=== PATIENT | male | born 1960 | race Caucasian/White ===

== ENCOUNTER 2020-02-20 09:50 | Inpatient (IN) ==
--- NOTE | 2020-02-04 16:02 | PAT Medication Instructions ---
Medication Instructions Date of Service February 04, 2020 Home Medications Testosterone Inj 1 dose INJ Q12D duloxetine 30 - 60 mg PO BID ferrous sulfate [Iron (ferrous sulfate)] 325 mg PO QAM levothyroxine 50 mcg PO HS losartan 50 mg PO HS multivitamin 1 tab PO QAM quetiapine 300 mg PO HS Continue as directed Testosterone Inj 1 dose INJ Q12D DO NOT take the morning of surgery ferrous sulfate [Iron (ferrous sulfate)] 325 mg PO QAM multivitamin 1 tab PO QAM Take morning of surgery With a small sip of water, OTHERWISE NOTHING TO EAT OR DRINK AFTER MIDNIGHT: duloxetine 30 - 60 mg PO BID Take evening before surgery duloxetine 30 - 60 mg PO BID levothyroxine 50 mcg PO HS losartan 50 mg PO HS quetiapine 300 mg PO HS Other Notes If you have any questions please call us at [phone] or [phone] or [phone] or [phone]
--- NOTE | 2020-02-05 13:02 | Anesthesiology Consultation ---
Date of Service February 05, 2020 Assessment & Plan (1) Encounter for pre-operative examination: COVID Status: As of 02/04 assessment, patient denies travel to endemic area, known exposure/sick contacts, or symptoms of COVID19. Patient instructed that they and their household members must follow strict social distancing guidelines, wear a mask in public and avoid travel for 14 days prior to surgery. Preoperative COVID19 testing to be completed prior to surgery per surgeon's a rrangements. Patient made aware to self-isolate as much as possible between COVID testing and surgery. Patient having dental procedure for broken tooth prior to surgery. Surgeon's office made aware. Chart Review Chart Review: Acceptable Risk for Surgery and Patient seen in Pre Admission Testing Teaching & Discussion Instructed NPO after midnight before surgery, except medications with 15 cc of water. Medication instructions provided according to the PAT guidelines. History Surgery Operation Date: 02/20/20 11:25 Proposed Procedures p L4-S1 Decompression Fusion, Spinal Cord Monitoring - Ricci oBwen, Height/Weight Height: 5 ft 11 in Weight: 81.8 kg Allergies Allergy/AdvReac Type Severity Reaction Status Date / Time phenobarbital Allergy Unknown Hives Verified 01/31/20 15:09 Medications Home Medications Medication Instructions Recorded Confirmed Last Taken Testosterone Inj 1 dose INJ Q12D 01/31/20 01/31/20 Unknown duloxetine 30 - 60 mg PO BID 01/31/20 01/31/20 Unknown ferrous sulfate [Iron (ferrous 325 mg PO QAM 01/31/20 01/31/20 Unknown sulfate)] levothyroxine 50 mcg PO HS 01/31/20 01/31/20 Unknown losartan 50 mg PO HS 01/31/20 01/31/20 Unknown multivitamin 1 tab PO QAM 01/31/20 01/31/20 Unknown quetiapine 300 mg PO HS 01/31/20 01/31/20 Unknown Past Medical History Medical History Chronic back pain TO LEFT GROIN Depression Hypertension Hypothyroidism Post traumatic stress disorder Uses medical cannabis HS, has found it to be very effective. Exercise / Class Metabolic Activity II 4-5 Yardwork/Stairs/Walk up hill Past Family History Family History (Updated 01/31/20 @ 15:20 by Lindsay Harrell RN) Mother Family hx of colon cancer Father Family history of diabetes mellitus Past Surgical History Surgical History (Updated 02/05/20 @ 12:58 by Sohan Ayala) Anal fissure REPAIR History of colonoscopy MULTIPLE History of esophagogastroduodenoscopy (EGD) History of tonsillectomy Undescended testicle, unilateral A CHILD REPAIR Past Anesthesia History No Hx of Anesthesia Complications and No Family Hx of Anesthesia Complications History of PONV No Hx of PONV and No Hx of Motion Sickness Social History Smoking Status: Current every day smoker Smoking cigarettes per day: 20 CIGS A DAY X 25 YRS Do You Dip or Chew Tobacco: No Hx Alcohol Use: Yes Alcohol type: hard liquor alcohol intake frequency: a few times a month Hx Substance Use: Yes substance use type: marijuana Substance Use Type Other:: MEDICAL MARIJUANA CARD-1 X A DAY HS EDIBLE Review of Systems Pt denies any recent chest pain, shortness of breath, palpitations, cough, fever, URI, or uncontrolled acid reflux (just gets occasionally). Physical Exam Vital Signs BP: 142/95 (pt appears somewhat nervous, reports white coat HTN) P: 86bpm SPO2: 97% RA T: 98.4 F R: 12 ENMT Mouth: + dental restorations (2 crowns on molars) and + chipped teeth (broken lower R molar to be repaired prior to surgery); no loose teeth Thyromental Distance: > or= 3.5 Finger Breadths Mallampati Class: II Neck normal visual inspection; neck extension not limited Respiratory normal respiratory effort Auscultation: lungs clear to auscultation bilaterally Cardiovascular Rate/Rhythm: regular rate and regular rhythm Heart Sounds: no murmur Extremities: no edema Testing Laboratory Results 02/05/20 13:12 02/05/20 13:12 PT 10.2 Seconds (9.0-12.0) 02/05/20 13:12 INR 1.0 (0.9-1.1) 02/05/20 13:12 APTT 28.2 Seconds (21.0-31.0) 02/05/20 13:12 Urine Color Dark Yellow 02/05/20 13:12 Urine Appearance Clear (Clear) 02/05/20 13:12 Urine pH 5.5 (4.5-7.5) 02/05/20 13:12 Ur Specific [place] 1.017 (1.000-1.030) 02/05/20 13:12 Urine Protein Negative (Negative) 02/05/20 13:12 Urine Glucose (UA) Negative (Negative) 02/05/20 13:12 Urine Ketones Negative (Negative) 02/05/20 13:12 Urine Nitrite Negative (Negative) 02/05/20 13:12 Ur Leukocyte Esterase Negative (Negative) 02/05/20 13:12 Blood Type O Positive 02/05/20 13:12 Antibody Screen NEGATIVE 02/05/20 13:12 Electrocardiogram Date: 02/05/20 Findings: + RBBB Chest X-Ray Date: 02/05/20 Findings: + NAD
--- NOTE | 2020-02-05 13:45 | XRay Report ---
TWO VIEW CHEST CLINICAL HISTORY: Preoperative examination. FINDINGS: PA and lateral chest radiographs are obtained. No prior studies are available for compariso n at the time of dictation. The cardiomediastinal silhouette is unremarkable noting atherosclerotic calcification of the thoracic aorta. Scarring/atelectasis is noted in the left lower lobe. No airspac e consolidation or pleural effusion is identified. There is no pneumothorax. There are healed right-s ided rib fractures. IMPRESSION: No active disease in the chest. ACT 112: Negative or not required by law. Electronically signed by: Jose Darby M.D. 02/05/2020 1:44 PM
[2020-02-05 14:40] LABS: Basophils # (auto) 0.01 K/uL (0-0.2); Basophils % (auto) 0.2 %; Eosinophils # (auto) 0.01 K/uL (0-0.5); Eosinophils % (auto) 0.2 %; Hematocrit (blood only) 42.4 % (42-52); Hemoglobin 14.4 g/dL (14.0-18.0); Immature Granulocytes # (auto) 0.01 K/uL (0.00-0.02); Immature Granulocytes % (auto) 0.2 %; Lymphocytes # (auto) 1.72 K/uL (1.2-3.4); Lymphocytes % (auto) 29.4 %; Mean Corpuscular Hemoglobin 33.7 pg (25-34); Mean Corpuscular Volume 99.3 fL (80-100); Mean Platelet Volume 9.6 fL (7.4-10.4); Monocytes % (auto) 10.2 %; Neutrophils # (auto) 3.51 K/uL (1.4-6.5); Neutrophils % (auto) 59.8 %; Platelet Count 183 K/uL (130-400); RDW Coefficient of Variation 13.6 % (11.5-14.5); RDW Standard Deviation 48.8 fL (36.4-46.3); Red Blood Count 4.27 M/uL (4.7-6.1); White Blood Count 5.86 K/uL (4.8-10.8)
[2020-02-05 14:43] LABS: Appearance Urine Clear (Clear); Bilirubin Urine Negative (Negative); Blood Urine Negative (Negative); Color Urine Dark Yellow; Glucose Urine UA Negative (Negative); Ketones Urine Negative (Negative); Leukocyte Esterase Urine Negative (Negative); Nitrite Urine Negative (Negative); Protein Urine Negative (Negative); Specific Gravity Urine 1.017 (1.000-1.030); Urobilinogen Urine Negative (Negative); pH Urine 5.5 (4.5-7.5)
[2020-02-05 14:52] LABS: Partial Thromboplastin Time 28.2 Seconds (21.0-31.0); Prothrombin Time 10.2 Seconds (9.0-12.0)
[2020-02-05 15:43] LABS: BUN Creatinine Ratio 16.7 (10-20); Calcium 9.8 mg/dl (8.5-10.1); Creatinine Clr Calc Pharmacy 83.7 ml/min; Est GFR (African American) 94.4; Est GFR (Non-African American) 81.4; Potassium 4.3 mmol/L (3.5-5.1)
--- NOTE | 2020-02-06 06:06 | Electrocardiogram Report ---
Test Reason : Blood Pressure : / mmHG Vent. Rate : 083 BPM Atrial Rate : 083 BPM P-R Int : 142 ms QRS Dur : 144 ms QT Int : 386 ms P-R-T Axes : 068 073 054 degrees QTc Int : 453 ms Normal sinus rhythm Right bundle branch block Abnormal ECG No previous ECGs available Confirmed by Robe Yanes ([id number]) on 02/06/2020 6:06:16 AM Referred By: Ricci Bowen Confirmed By:Robe Yanes
[~2020-02-20 09:50] MED LIST: ACETAMINOPHEN 500 MG TAB PO SCH; CeleBREX 200 MG CAP PO SCH; GABAPENTIN 600 MG DOSE PO SCH; LR 15ML/HR IV SCH; ceFAZolin 2000MG 2,000 MG/15 ML SYR IV SCH
[2020-02-20] MEDS ORDERED: LABETALOL HCL IV 5 MG/ML 20ML IV PRN (10:03)
[2020-02-20] MEDS ORDERED: ATROPINE SULFATE 0.1 MG/ML 10ML SYR IV PRN (10:03)
[2020-02-20] MEDS ORDERED: ONDANSETRON INJ 2 MG/ML 2 ML VIAL IV PRN ×2 (10:03→15:50)
[2020-02-20] MEDS ORDERED: HYDROmorphone INJ 1 MG/ML SYRINGE IV PRN (10:03)
[2020-02-20] MEDS ORDERED: ePHEDrine sulfate 50 MG/ML AMP IV PRN (10:03)
[2020-02-20] MEDS ORDERED: MEPERIDINE HCL 25 MG/ML CARP/VIAL IV PRN (10:03)
[2020-02-20] MEDS ORDERED: fentaNYL citrate 100 MCG/2 ML VIAL IV PRN (10:03)
[2020-02-20] MEDS ORDERED: PHENYLEPHRINE 100MCG/ML 5ML SYR IV PRN (10:03)
[2020-02-20] MEDS ORDERED: LIDOCAINE HCL 2% 2 ML VIAL/AMP(20MG/ML) INFIL ONE (10:51)
[2020-02-20] MEDS ORDERED: ONDANSETRON INJ 2 MG/ML 2 ML VIAL ONE (10:51)
[2020-02-20] MEDS ORDERED: PROPOFOL IV EMULSION 10 MG/ML 20 ML VIAL IV ONE (10:51)
[2020-02-20] MEDS ORDERED: ROCURONIUM BROMIDE 10 MG/ML 5 ML VIAL IV ONE ×4 (10:51→12:59)
[2020-02-20] MEDS ORDERED: MIDAZOLAM HCL 1 MG/ML 2ML VIAL ONE (10:51)
[2020-02-20] MEDS ORDERED: fentaNYL citrate 100 MCG/2 ML VIAL ONE (10:51)
--- NOTE | 2020-02-20 11:16 | History & Physical Bridge Note ---
Date of Service February 20, 2020 History & Physical Bridge Note I have examined the patient, reviewed the History & Physical and in the interval since the performance of the History & Physical I have noted the following changes of clinical significance: no changes noted
--- NOTE | 2020-02-20 11:17 | History & Physical Report ---
Date of Service February 20, 2020 Assessment & Plan (1) Neurogenic claudication due to lumbar spinal stenosis: Admission and Anticipated Discharge Date Admission Date: L4-S1 decompression fusion History of Present Illness Chief Complaint: Back and leg pain Primary Care Provider: Paxton Rojas DO This is a 5-year-old male who presents with chronic resistant leg pain after failing a course of nonoperative care is here for surgical invention. Allergies Allergy/AdvReac Type Severity Reaction Status Date / Time phenobarbital Allergy Unknown Hives Verified 02/20/20 10:18 Home Medications Home Medications Medication Instructions Recorded Confirmed Type Testosterone Inj 1 dose INJ Q12D 01/31/20 02/20/20 History duloxetine 30 - 60 mg PO BID 01/31/20 02/20/20 History ferrous sulfate [Iron (ferrous 325 mg PO QAM 01/31/20 02/20/20 History sulfate)] levothyroxine 50 mcg PO HS 01/31/20 02/20/20 History losartan 50 mg PO HS 01/31/20 02/20/20 History multivitamin 1 tab PO QAM 01/31/20 02/20/20 History quetiapine 300 mg PO HS 01/31/20 02/20/20 History Past Med/Surg History Medical History (Updated 02/20/20 @ 11:17 by Ricci Bowen DO) Chronic back pain TO LEFT GROIN Depression Hypertension Hypothyroidism Post traumatic stress disorder Uses medical cannabis HS, has found it to be very effective. Right bundle branch block Surgical History Anal fissure REPAIR History of colonoscopy MULTIPLE History of esophagogastroduodenoscopy (EGD) History of tonsillectomy Undescended testicle, unilateral A CHILD REPAIR Family History (Updated 01/31/20 @ 15:20 by Lindsay Harrell RN) Mother Family hx of colon cancer Father Family history of diabetes mellitus Social History Smoking Status: Current every day smoker Cigarettes Per Day: 20 CIGS A DAY X 25 YRS; Second Hand Exposure: Yes (PARENTS SMOKED); Do You Dip or Chew Tobacco: No; Hx Alcohol Use: Yes Alcohol type: hard liquor Hx Substance Use: Yes Substance Use Type Other:: MEDICAL MARIJUANA CARD-1 X A DAY HS EDIBLE Preferred Language: Jordanian Communication Ability: Effective Construction Project Assistant Required: No Beliefs That Will Affect Care: None Current Living Situation: Significant Other Other Information That Helps Us Care for You: No Feels Safe at Home: Yes Safety Concerns: Feels Safe At This Time Assistive Devices: Brace/Splint/Immobilizer and Glasses Assistive Devices Comment: BRACE PRN Physical Exam Physical Exam: Patient is alert and oriented Heart regular rate and rhythm Lungs clear to auscultation Results & Data ([facility]) Vital Signs (Past 12 Hours) Vital Signs Temp Pulse Resp BP Pulse Ox 02/20/20 10:21 36.5 C 90 16 159/79 H 96
[2020-02-20] MEDS ORDERED: BUPIVACAINE/EPINEPHRINE 0.25% 1:200,000 30 ML VIAL ONE (11:25)
[2020-02-20] MEDS ORDERED: BACITRACIN INJ 50,000 UNIT VIAL ONE (11:25)
[2020-02-20] MEDS ORDERED: HYDROmorphone INJ 2 MG/ML SYR/VIAL ONE (12:07)
[2020-02-20] MEDS ORDERED: FLOSEAL HEMOSTATIC MATRIX 10ML TOP ONE ×2 (12:49→13:46)
[2020-02-20] MEDS ORDERED: ePHEDrine sulfate 50 MG/ML SYR ONE (13:04)
[2020-02-20] MEDS ORDERED: PHENYLEPHRINE 100MCG/ML 5ML SYR ONE (13:04)
[2020-02-20] MEDS ORDERED: PHENYLEPHRINE HCL 10 MG/ML VIAL ONE (13:05)
[2020-02-20] MEDS ORDERED: GLYCOPYRROLATE 0.2 MG/ML VIAL ONE (13:42)
[2020-02-20] MEDS ORDERED: NEOSTIGMINE METHYLSULFATE 1 MG/ML 10ML VIAL ONE (13:42)
--- NOTE | 2020-02-20 13:56 | Operative Report ---
Post Operative Report Pre & Post Diagnosis Operation Date: 02/20/20 11:25 Pre-Op Diagnosis: Lumbar spinal stenosis with neurogenic claudication Post-Op Diagnosis: Same I identified the patient and participated in the time-out.: Yes Procedure Operation Date: 02/20/20 11:25 Actual Procedures #1 lumbar decompression with bilateral medial facetectomies and foraminotomies L3-4, L4-5 L5-S1 peer #2 posterior spinal fusion L4-5 L5-S1. #3 please posterior instrumentation L4-5 L5-S1. #4 interbody fusion L4-5 L5-S1. #5 placement peek cage 10 x 26 mm at L4-5 L5-S1. #6 placement of locally harvested morselized autograft in the posterior lateral gutters. #7 patient refused collagen sponge, master graft in the posterior lateral gutters and ostium interbody space. Surgeon Ricci Bowen, Reed Repairer Ngozi Malcolm Estimated Blood Loss 150 Findings Consistent with Post-Op Diagnosis Specimens None Indications This is a 59-year-old male who presents with dementia diagnosis after failing since course of nonoperative care is here for the above-mentioned procedure. Description of Procedure Patient was met with identified informed consent obtained. Patient was then taken to the operative suite underwent intubation placed in a prone position the Alex table on top of the Jose frame. All bony prominences well-padded eyes inspected to ensure no external pressure placed upon the bed at this point the lumbar spine was prepped and draped in normal sterile fashion. Sharp dissection with the assistance of Bovie cautery was performed down to and exposing the lamina transverse processes of L4-L5 and sacral ala bilaterally. From caudal to cephalad fashion complete laminectomy of L5 L4 and partial laminectomy of L3 was performed including bilateral medial facetectomies and foraminotomies addressing all spinal stenosis. Pedicle screws are in place in all 4 L5 and S1 levels bilaterally with assistance of fluoroscopy and the appropriately sized yfn placed. They will have a transfemoral approach on the left pleat discectomy about 5 S1 was performed and plegic her to do some cortical bleeding bone in the 11 x 26 mm peek cage filled with osteobone graft tapped in position. And proceeded L4-[address] of a transforaminal approach on the left peak discectomy performed endplates graded to subcortical mean bone and again an 11 x 26 mm peek cage filled osteobone graft after position. The rods were then locked into final position bilaterally. The transverse processes of L4-L5 sacral ala bridging subcortical body wound. Infuse collagen sponge meshed graft local autograft was placed in the posterior lateral gutters. 15 round BATSHEVA drain inserted. The incision was then closed with 1 Vicryl to fascia 2-0 Vicryl subcutaneously and 4 Monocryl for final skin closure. Steri-Strips dressings placed. Patient will continue to PACU stable condition. Please note spinal cord monitoring was allowed to have the procedure no changes noted. Lastly Ngozi Malcolm was present for the entire surgery by the patient positioning complex questions of the surgery and final skin closure. I attest to the content of the Intraoperative Record and any orders documented therein. Any exceptions are noted below.
--- NOTE | 2020-02-20 14:14 | Fluoroscopy Report ---
FL lumbar spine 2-3V CLINICAL HISTORY: L4-S1 DECOMPRESSION AND FUSION COMPARISON STUDY: None. FLUOROSCOPY TIME: 22 seconds. FINDINGS: 3 fluoroscopic spot images of the lumbar spine demonstrate posterior decompression fusion f rom L4 through S1 with pedicle screws and rods. The hardware appears intact. IMPRESSION: Fluoroscopy provided for L4-S1 posterior decompression and fusion. ACT 112: Negative or not required by law. Electronically signed by: Tayo Hernández M.D. 02/20/2020 2:13 PM
--- NOTE | 2020-02-20 15:00 | Anesthesiology Progress Note ---
Date of Service February 20, 2020 Anesthesia Post Procedure Vital Signs Vital Signs: Temp Pulse Pulse Resp BP BP Pulse Ox 02/20/20 14:50 86 13 136/77 93 02/20/20 14:40 82 12 105/78 95 02/20/20 14:30 84 10 L 131/77 98 02/20/20 14:20 80 13 113/78 95 02/20/20 14:12 36.1 C L 72 14 102/60 98 02/20/20 10:21 36.5 C 90 16 159/79 H 96 Pain Intensity Posterior Back: Pain Intensity: 4 Transfer of Care Handoff Completed per policy Notes Mental Status: alert / awake / arousable and participated in evaluation Patient Amnestic to Procedure: Yes Nausea / Vomiting: adequately controlled Pain: adequately controlled Airway Patency, RR, SpO2: stable & adequate BP & HR: stable & adequate Hydration State: stable & adequate Anesthetic Complications: no major complications apparent and Pt Satisfied with anesthetic care
[2020-02-20] MEDS ORDERED: DO NOT ADMINISTER FLU VACCINE PRN (15:50)
[2020-02-20] MEDS ORDERED: LORazepam 0.5 MG/1 ML VIAL IV PRN (15:50)
[2020-02-20] MEDS ORDERED: HYDROmorphone INJ 0.5 MG/0.5 ML SYR IV PRN (15:50)
[2020-02-20] MEDS ORDERED: DO NOT ADMINISTER PNEUMOCOCCAL VACCINE PRN (15:50)
[2020-02-20] MEDS ORDERED: SOD PHOSPHATE/SOD BIPHOSPHATE ENEMA 132 ML BTL PR PRN (15:50)
[2020-02-20] MEDS ORDERED: ALUMINUM/MAGNESIUM SUSP 30 ML UDC PO PRN (15:50)
[2020-02-20] MEDS ORDERED: MAGNESIUM HYDROXIDE SUSP 30 ML UDC PO PRN (15:50)
[2020-02-20] MEDS ORDERED: hydrOXYzine HCl 25 MG TAB PO PRN (15:50)
[2020-02-20] MEDS ORDERED: ACETAMINOPHEN 1,000 MG/100 ML VIAL IV PRN (15:50)
[2020-02-20] MEDS ORDERED: METOCLOPRAMIDE HCL INJ 5 MG/ML 2 ML VIAL IV PRN (15:50)
[2020-02-20] MEDS ORDERED: NALOXONE HCL 0.4 MG/1 ML VIAL/CARP IV PRN (15:50)
[2020-02-20] MEDS ORDERED: FAMOTIDINE 20 MG TAB PO PRN (15:50)
[2020-02-20] MEDS ORDERED: ONDANSETRON 4 MG OD TAB PO PRN (15:50)
[2020-02-20] MEDS ORDERED: bisacodyL 10 MG SUPP PR PRN (15:50)
[2020-02-20] MEDS ORDERED: diphenhydrAMINE Capsule 25 MG CAP PO PRN (15:50)
[2020-02-20] MEDS ORDERED: LORazepam 0.5 MG TAB PO PRN (15:50)
[2020-02-20] MEDS ORDERED: PROMETHAZINE HCL 12.5 MG in SODIUM CHLORIDE 0.9% 50 ML IV PRN (15:50)
[2020-02-20] MEDS: LACTATED RINGER'S 1,000 ML IV SCH ×2 (16:08→22:29)
[2020-02-20] MEDS: oxyCODONE HCL IR 5 MG TAB (IMMEDIATE RELEASE) PO PRN ×2 (17:12→21:39)
[2020-02-20] MEDS: KETOROLAC TROMETHAMINE 15 MG/ML VIAL IV SCH (18:08)
[2020-02-20] MEDS: ceFAZolin 2000MG 2,000 MG/15 ML SYR IV SCH (20:51)
[2020-02-20] MEDS: QUEtiapine FUMARATE 300 MG TABLET PO SCH (20:53)
[2020-02-20] MEDS: DOCUSATE SODIUM/SENNA 50/8.6MG TAB PO SCH (20:53)
[2020-02-20] MEDS: LOSARTAN POTASSIUM 50 MG TAB PO SCH (20:53)
[2020-02-20] MEDS: DULoxetine HCL 30 MG CAP PO SCH (20:54)
[2020-02-20] MEDS: LEVOTHYROXINE SODIUM 50 MCG TABLET PO SCH (20:54)
[2020-02-20] MEDS: ACETAMINOPHEN 500 MG TAB PO PRN (21:39)
[2020-02-20] MEDS: HYDROmorphone INJ 1 MG/ML SYRINGE IV PRN (22:25)
[2020-02-21] MEDS: KETOROLAC TROMETHAMINE 15 MG/ML VIAL IV SCH ×3 (00:08→12:02)
[2020-02-21] MEDS: oxyCODONE HCL IR 5 MG TAB (IMMEDIATE RELEASE) PO PRN ×4 (03:01→16:04)
[2020-02-21] MEDS: ceFAZolin 2000MG 2,000 MG/15 ML SYR IV SCH (03:02)
[2020-02-21] MEDS: HYDROmorphone INJ 1 MG/ML SYRINGE IV PRN ×5 (04:55→20:50)
[2020-02-21] MEDS: LACTATED RINGER'S 1,000 ML IV SCH (05:29)
[2020-02-21] MEDS: POLYETHYLENE (MIRALAX) 17 GM PACK PO SCH ×3 (05:31→17:30)
[2020-02-21 06:13] LABS: Basophils # (auto) 0.01 K/uL (0-0.2); Basophils % (auto) 0.2 %; Eosinophils # (auto) 0.01 K/uL (0-0.5); Eosinophils % (auto) 0.2 %; Hematocrit (blood only) 31.6 % (42-52); Hemoglobin 10.5 g/dL (14.0-18.0); Immature Granulocytes # (auto) 0.01 K/uL (0.00-0.02); Immature Granulocytes % (auto) 0.2 %; Lymphocytes # (auto) 1.47 K/uL (1.2-3.4); Mean Corpuscular Hgb Conc 33.2 g/dL (32-36); Mean Corpuscular Volume 102.3 fL (80-100); Mean Platelet Volume 9.4 fL (7.4-10.4); Monocytes # (auto) 0.59 K/uL (0.11-0.59); Neutrophils # (auto) 3.79 K/uL (1.4-6.5); Neutrophils % (auto) 64.4 %; Platelet Count 135 K/uL (130-400); RDW Standard Deviation 52.3 fL (36.4-46.3); Red Blood Count 3.09 M/uL (4.7-6.1); White Blood Count 5.88 K/uL (4.8-10.8)
[2020-02-21 06:38] LABS: BUN Creatinine Ratio 11.6 (10-20); Creatinine Clr Calc Pharmacy 73.7 ml/min; Est GFR (African American) 84.1; Est GFR (Non-African American) 72.6; Potassium 3.8 mmol/L (3.5-5.1)
[2020-02-21] MEDS: ACETAMINOPHEN 500 MG TAB PO PRN ×2 (08:06→16:05)
[2020-02-21] MEDS: FERROUS SULFATE 325 MG TAB PO SCH (08:06)
[2020-02-21] MEDS: DULoxetine HCL 30 MG CAP PO SCH ×2 (08:06→20:30)
[2020-02-21] MEDS: MULTIVITAMIN TAB PO SCH (08:06)
--- NOTE | 2020-02-21 12:32 | Orthopedic Progress Note ---
Date of Service February 21, 2020 Assessment & Plan (1) Neurogenic claudication due to lumbar spinal stenosis: Admission and Anticipated Discharge Date Admission Date: February 20, 2020 This time we will continue physical therapy monitor his BATSHEVA operatively discharge home in the next few days. Subjective Back pain controlled leg symptoms improved. Physical Exam Physical Exam: Patient appears comfortable is excellent strength testing. Results & Data ([facility]) Vital Signs (Past 12 Hours) Vital Signs Temp Pulse Pulse Resp BP Pulse Ox 02/21/20 11:16 36.8 C 86 18 128/82 95 02/21/20 07:45 36.8 C 90 22 115/71 94 02/21/20 02:54 37.1 C 102 H 18 107/63 90
[2020-02-21] MEDS: NICOTINE 21 MG/24 HR TDSY TD SCH (15:32)
[2020-02-21] MEDS: DOCUSATE SODIUM/SENNA 50/8.6MG TAB PO SCH (20:30)
[2020-02-21] MEDS: LEVOTHYROXINE SODIUM 50 MCG TABLET PO SCH (20:30)
[2020-02-21] MEDS: QUEtiapine FUMARATE 300 MG TABLET PO SCH (20:30)
[2020-02-21] MEDS: LOSARTAN POTASSIUM 50 MG TAB PO SCH (20:30)
[2020-02-21] MEDS: KETOROLAC TROMETHAMINE 15 MG/ML VIAL IV PRN (20:50)
[2020-02-22] MEDS: POLYETHYLENE (MIRALAX) 17 GM PACK PO SCH ×3 (00:40→12:42)
[2020-02-22] MEDS: HYDROmorphone INJ 1 MG/ML SYRINGE IV PRN ×3 (04:14→11:00)
[2020-02-22] MEDS: oxyCODONE HCL IR 5 MG TAB (IMMEDIATE RELEASE) PO PRN ×3 (06:19→14:32)
[2020-02-22] MEDS: KETOROLAC TROMETHAMINE 15 MG/ML VIAL IV PRN (06:20)
[2020-02-22] MEDS: FERROUS SULFATE 325 MG TAB PO SCH (08:26)
[2020-02-22] MEDS: MULTIVITAMIN TAB PO SCH (08:26)
[2020-02-22] MEDS: DULoxetine HCL 30 MG CAP PO SCH (08:26)
[2020-02-22] MEDS: NICOTINE 21 MG/24 HR TDSY TD SCH (08:26)
--- NOTE | 2020-02-22 09:38 | Discharge Summary ---
Date of Service February 22, 2020 Admission HPI Per Admitting Provider This is a 5-year-old male who presents with chronic resistant leg pain after failing a course of nonoperative care is here for surgical invention. Principal Diagnosis Lumbar spinal stenosis with radiculopathy Discharge Data Allergies Allergy/AdvReac Type Severity Reaction Status Date / Time phenobarbital Allergy Unknown Hives Verified 02/20/20 10:18 Consultations 02/20/20 15:50 Consult Case Management - Discharge Planning Routine Procedures Performed Operation Date: 02/20/20 11:25 Actual Procedures p L4-S1 Decompression Fusion, Spinal Cord Monitoring - Ricci Bowen DO Ordered Studies 02/20/20 11:25 FL fluoroscopy <1hr Routine FL lumbar spine 2-3V Routine Hospital Course (1) Neurogenic claudication due to lumbar spinal stenosis: Patient went multilevel lumbar decompression fusion tolerated this well was taken to orthopedic for postoperative. Postop day 1 he was up and ambulating progressed to postop day #2. BATSHEVA drain decreasing appropriate. Excellent strength testing. Subsequently discharged home. Discharge orders and instructions found in the chart for further review. Total Time Total Time Spent Total Time Spent (In Minutes): 20 minutes Discharge Plan Discharge Items Patient Disposition: Home - Self-Care Reason For Visit: Spinal Stenosis, Lumbar Region without Neurogenic Discharge Diagnosis: Lumbar spinal stenosis with neurogenic claudication Activity: As commented below Non-emergency contact: Primary Care Provider Call non-emergency contact if: you have any medication questions Follow-up/Referrals: Paxton Rojas DO [Primary Care Provider] - Diet: Regular Addtl Attending Provider Instructions: ACTIVITY RECOMMENDATIONS: SELF CARE INSTRUCTIONS AFTER THORACIC/LUMBAR FUSIONS 1. You may walk to your tolerance. It is good exercise for your legs and back. Expect some back and intermittent leg aches and pains. 2. You may perform "counter-top" level activities (make a sandwich, dharmesh with a project, etc.). 3. No bending or lifting of more than 10 pounds or back twisting of any nature (roll like a log when turning in bed). 4. You may ride in a car for 20-30 minutes at a time. No driving until after your first visit with your doctor. 5. Frequent changes of position and restricting sitting to 30 minutes at a time will help limit the amount of back spasms and stiffness you may experience. 6. You may discontinue the use of ambulatory aids (cane, crutches, etc.) once your strength and confidence allow. 7. You may fur finisher the shower and let water strike your incision when you arrive home at least once daily. Do not take a tub bath, sit in a hot tub or go into a swimming pool until after your first recheck in the office. SPECIAL CARE INSTRUCTIONS: VERY IMPORTANT TO READ AND REVIEW A. Your surgical incision has been closed with a cosmetic suture under the skin that will dissolve in about 6 weeks. In 14 days, you can use a pair of clean scissors and cut the suture that is left outside of the skin at the ends of your incision. 1. The small skin tapes can be removed 7 days after surgery if they have not fallen off by that point. 2. You may keep the wound open to air as much as possible to promote healing after post-op day number 5 unless told otherwise by your doctor. 3. If you think the wound looks like it is becoming infected (redness or worsening drainage) and/or you are experiencing fever, chill or worsening back pain and muscle spasms, contact the office so that we may evaluate you as soon as possible. B. Complications are uncommon, but please contact us if you have any signs or symptoms of: 1. wound infection (fever higher than 102.5 degrees F, redness, separation of wound, drainage, or increasing pain from the incision) 2. blood clots in legs (pain, swelling, redness and warmth in legs) 3. urinary tract infection (fever higher than 102.5 degrees F, burning upon urination or increased frequency of urination) 4. nerve problems (inability to walk on your toes or heels, numbness, loss of bowel or bladder control) 5. any other symptoms that concern you C. Please call the office at if you have any concerns or questions about your operation or recovery. D. No smoking! Smoking drastically decreases the chance of a solid fusion. E. Do not take any anti-inflammatory medications (Indocin, Advil, Motrin, Aspirin, Naprosyn, etc.) as these may inhibit the chance of a solid fusion. Tylenol is okay to take for pain. MANAGING PAIN AFTER SPINAL SURGERY 1. Narcotic medication is intended for short-term use and will be provided for surgical pain. Surgical pain usually lasts for a period of 4-6 weeks. Narcotic medication includes Percocet, Vicodin, Darvocet, Tylenol #3 or Lortab. 2. Longer-term pain is more appropriately treated with non-narcotic medication such as Tylenol ES. 3. Muscle spasm is not appropriately treated with narcotics. Muscle relaxers such as Soma, Flexeril or Skelaxin can be used along with Tylenol ES. 4. Remember that we all live with some "aches and pains". This is not unusual or uncommon after an injury or as we get older. a. Back pain is expected and may include muscle spasms for 4 to 6 weeks after surgery. The pain should gradually improve. If the pain worsens for no apparent reason, please contact the office. b. Intermittent leg pain may also be experienced and should not be concerned about unless it worsens for no apparent reason. If so, please contact the office. 5. We will provide appropriate medication within the normal guidelines of their prescribed use. We will also be very cautious and aware of potential abuse and extended duration of patients' medication needs. a. Pain medications are for your comfort and to assist with sleep and rest so that the tissue can heal. They are not provided in order to return to normal activity and should not be used through the day. To do so or worsening pain at night can result from ongoing tissue damage and development of tolerance to the prescribed medicine. 6. Please allow 2-3 days to process refills. Prescriptions will not be mailed but must be picked up at the office. FOLLOW UP VISIT: Keep your scheduled follow-up appointment. Any questions, please call the office at . Pending Studies at Discharge: No Stand-Alone Forms: My [facility], Smoking Cessation Medications and DC Order Prescriptions: New tramadol 50 mg tablet 50 mg PO Q6H PRN (Reason: pain, moderate) Qty: 20 RF: 0 oxycodone 5 mg tablet 5 mg PO Q6H PRN (Reason: pain, severe) Qty: 20 RF: 0 Continued multivitamin Tablet 1 tab PO QAM RF: 0 losartan 50 mg Tablet 50 mg PO HS RF: 0 quetiapine 300 mg Tablet 300 mg PO HS RF: 0 ferrous sulfate [Iron (ferrous sulfate)] 325 mg (65 mg iron) Tablet 325 mg PO QAM RF: 0 duloxetine 30 mg Capsule,Delayed Release(Dr/Ec) 30 - 60 mg PO BID RF: 0 levothyroxine 50 mcg Capsule 50 mcg PO HS RF: 0 Testosterone Inj 1 dose INJ Q12D RF: 0 Discharge Orders: Discharge Order (Routine); Ordered 02/22/20 Ordered By: Ricci Bowen Admission Data Admit Date/Time: 02/20/20 14:33 Attending Provider: Ricci Bowen Admit Provider: Ricci Bowen Primary Care Provider: Paxton Rojas V.
== END 2020-02-22 15:30 | disposition home or self-care (01) | DRG 455 ==
LOC: ASU 09:50 → 3E 14:33